=== PATIENT | male | born 1950 | race Caucasian/White ===

== ENCOUNTER 2022-02-26 11:40 | Emergency (ER) | payer MEDICARE ==
[2022-02-26 12:28] LABS: BASOPHILS # (AUTO) 0.1 10^3/uL (0.0-0.1); BASOPHILS % (AUTO) 1.1 %; EOSINOPHILS # (AUTO) 0.8 10^3/uL (0.0-0.7); EOSINOPHILS % (AUTO) 6.6 %; HCT - HEMATOCRIT 45.3 % (42.0-52.0); HGB - HEMOGLOBIN 14.9 g/dL (14.0-18.0); LYMPHOCYTES # (AUTO) 2.2 10^3/uL (1.5-3.5); LYMPHOCYTES % (AUTO) 19.8 %; MEAN CORPUSCULAR HEMOGLOBIN 30.1 pg (27.0-31.0); MEAN CORPUSCULAR HGB CONC 32.9 g/dL (32.0-36.0); MEAN CORPUSCULAR VOLUME 91.5 fL (80.0-94.0); MEAN PLATELET VOLUME 9.5 fL (7.4-11.4); MONOCYTES # (AUTO) 0.6 10^3/uL (0.0-1.0); MONOCYTES % (AUTO) 5.6 %; NEUTROPHILS # (AUTO) 7.6 10^3/uL (1.5-6.6); NEUTROPHILS % (AUTO) 66.6 %; PLT - PLATELET COUNT 276 10^3/uL (130-450); RED BLOOD COUNT 4.95 10^6/uL (4.70-6.10); RED CELL DISTRIBUTION WIDTH 13.1 % (12.0-15.0); WHITE BLOOD COUNT 11.3 x10^3/uL (4.8-10.8)
[2022-02-26 12:44] LABS: ALBUMIN 4.7 g/dL (3.2-5.5); ALBUMIN/GLOBULIN RATIO 1.9 (1.0-2.2); BILIRUBIN,TOTAL 0.7 mg/dL (0.2-1.0); CALCIUM 9.8 mg/dL (8.5-10.3); CREATININE 2.1 mg/dL (0.6-1.2); POTASSIUM 3.2 mmol/L (3.5-5.0); TOTAL PROTEIN 7.2 g/dL (6.7-8.2)
--- NOTE | 2022-02-26 14:52 | CT Report ---
PROCEDURE: CT abdomen pelvis without contrast INDICATIONS: R sided abd pain; Cr 2.1 TECHNIQUE: Noncontrast 5 mm thick sections acquired from the diaphragms to the symphysis. 5 mm coronal and sagi ttal reformats were then performed. For radiation dose reduction, the following was used: automated exposure control, adjustment of mA and/or kV according to patient size. COMPARISON: None. FINDINGS: Image quality: Excellent. Evaluation is limited without contrast ABDOMEN: Lung bases: Lung bases are clear. Heart size is normal. Solid organs: Liver and spleen are normal in size. Gallbladder unremarkable Pancreas is normal in contours. No adrenal nodules. Kidneys are normal in size, without hydronephrosis or nephrolithiasis . Low-density 1.7 cm focus in the left kidney, probable cyst smaller low-density nodule in the right kidney also probably reflects cyst and. Minimal right sided bladder diverticulum noted. Peritoneum and bowel: Unenhanced bowel loops demonstrate normal wall thickness and caliber. No free fluid or air. Normal appendix identified. Nodes and vessels: No retroperitoneal or mesenteric adenopathy by size criteria. Aorta and inferior vena cava are normal in caliber. Miscellaneous: No ventral hernias. PELVIS: Genitourinary: Bladder wall thickness is normal. Miscellaneous: No inguinal hernias or adenopathy. Bones: No suspicious bony lesions. No vertebral body compression fractures. 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 Normal appendix without evidence of appendicitis. 2. Right-sided bladder diverticulum and probable renal cysts Reviewed by: Mendel Merida MD on 02/26/2022 1:50 PM [facility]DT Approved by: Mendel Merida MD on 02/26/2022 1:50 PM AKDT Station ID: [id number]
[2022-02-26 14:58] LABS: BILIRUBIN,URINE NEGATIVE (NEGATIVE); CLARITY,URINE CLEAR (CLEAR); GLUCOSE, URINE (UA) NEGATIVE (NEGATIVE); KETONES,URINE (UA) NEGATIVE (NEGATIVE); LEUKOCYTE ESTERASE, URINE NEGATIVE (NEGATIVE); NITRITE,URINE NEGATIVE (NEGATIVE); OCCULT BLOOD,URINE NEGATIVE (NEGATIVE); PH,URINE 7.5 PH (5.0-7.5); PROTEIN,URINE NEGATIVE (NEGATIVE); UROBILINOGEN,URINE 0.2 (NORMAL) E.U./dL (NORMAL)
[2022-02-26] MEDS ORDERED: POTASSIUM CHLORIDE 20 MEQ TABLET PO STA (15:32)
--- NOTE | 2022-02-26 15:39 | ED Physician Documentation ---
PD HPI ABD PAIN - Stated complaint Stated Complaint: ABD PX - Chief complaint Chief Complaint: Abd Pain - History obtained from History obtained from: Patient - Additional information Additional information: Patient is a 71-year-old male with a history of chronic kidney disease presenting for evaluation of right-sided abdominal pain that is been present for 1 week. Patient had been traveling in [place] and [place] when the pain started. He was seen by certified medical asst there with an unclear diagnosis. He was started on an antibiotic but is unsure of what that antibiotic was. He did have nausea at the onset of his symptoms but that has since resolved.He describes the pain as a dull ache. Nothing makes it better or worse. He denies radiation to the pain. He denies difficulty with urination. He has had a normal appetite. No known fevers. No chest pain or difficulty breathing. Denies history of previous abdominal surgeries. Review of Systems Constitutional: denies: Fever Nose: denies: Congestion Cardiac: denies: Chest pain / pressure Respiratory: denies: Dyspnea GI: reports: Abdominal Pain. denies: Nausea, Vomiting, Diarrhea : denies: Dysuria Skin: denies: Rash Musculoskeletal: denies: Back pain Neurologic: denies: Headache PD PAST MEDICAL HISTORY - Allergies Allergies/Adverse Reactions: Allergies Allergy/AdvReac Type Severity Reaction Status Date / Time Sulfa (Sulfonamide Allergy Unknown Verified 02/26/22 12:01 Antibiotics) PD ED PE NORMAL - General General: Alert and oriented X 3, No acute distress, Well developed/nourished - HEENT HEENT: Atraumatic, Moist mucous membranes - Neck Neck: Supple, no meningeal sign - Cardiac Cardiac: RRR, No murmur, Strong equal pulses - Respiratory Respiratory: No respiratory distress, Clear bilaterally - Abdomen Abdomen: Normal bowel sounds, Soft, Non distended, Other (No mass, no hernia, no rebound or guarding, mild mid rightAbdominal tenderness to palpation, no right upper quadrant tenderness on deep palpation or tenderness over McBurney's) - Back Back: No CVA TTP - Derm Derm: Warm and dry - Extremities Extremities: No edema - Neuro Neuro: Normal speech Results - Vitals Vitals: Vital Signs - 24 hr 02/26/22 02/26/22 11:55 16:04 Temperature 36.7 C Heart Rate 80 87 Respiratory 71 H 20 Rate Blood Pressure 163/90 H 157/88 H O2 Saturation 98 98 Oxygen O2 Source Room air - Labs Labs: Laboratory Tests 02/26/22 02/26/22 02/26/22 12:18 12:18 12:29 WBC 11.3 H RBC 4.95 Hgb 14.9 Hct 45.3 MCV 91.5 MCH 30.1 MCHC 32.9 RDW 13.1 Plt Count 276 MPV 9.5 Neut # (Auto) 7.6 H Lymph # (Auto) 2.2 [place] # (Auto) 0.6 Eos # (Auto) 0.8 H Baso # (Auto) 0.1 Absolute Nucleated RBC 0.00 Nucleated RBC % 0.0 Sodium 144 Potassium 3.2 L Chloride 104 Carbon Dioxide 30 Anion Gap 10.0 BUN 16 Creatinine 2.1 H Estimated GFR (MDRD) 31 L Glucose 96 Calcium 9.8 Total Bilirubin 0.7 AST 23 ALT 15 Alkaline Phosphatase 56 Total Protein 7.2 Albumin 4.7 Globulin 2.5 Albumin/Globulin Ratio 1.9 Lipase 88 H Urine Color YELLOW Urine Clarity CLEAR Urine pH 7.5 Ur Specific [place] <=1.005 Urine Protein NEGATIVE Urine Glucose (UA) NEGATIVE Urine Ketones NEGATIVE Urine Occult Blood NEGATIVE Urine Nitrite NEGATIVE Urine Bilirubin NEGATIVE Urine Urobilinogen 0.2 (NORMAL) Ur Leukocyte Esterase NEGATIVE Ur Microscopic Review NOT INDICATED Urine Culture Comments NOT INDICATED PD MEDICAL DECISION MAKING - ED course Complexity details: reviewed results, re-evaluated patient ED course: Patient with right-sided abdominal pain for 1 week. Labs reviewed. Patient has not been here previously but reports he has a history of chronic kidney disease with known GFR in the 30-40 range which appears consistent with today's labs. I offered IV hydration as well as IV pain medication which patient declined. CT scan without acute findings. Overall patient's abdominal exam is benign and he does not have a surgical abdomen or signs of peritonitis. Discussed need for close follow-up with his primary care doctor as well as advised on concerning symptoms to return for. Departure - Departure Disposition: 01 Home, Self Care Clinical Impression: Right sided abdominal pain Condition: Stable Instructions: ED Abdominal Pain Unkn Cause Male Comments: You were evaluated for abdominal pain. Your labs overall were reassuring. You do have chronic kidney disease and your labs reflected that. Creatinine 2.1/ GFR 31. Your potassium was slightly low and you were given a potassium pill. A CT scan was also obtained which showed a normal appendix and no other significant acute findings such as a bowel obstruction or other infection. You do have cysts in your kidneys which I recommend following up with your primary Care provider. If you have any worsening symptoms please return to the emergency department. Discharge Date/Time: 02/26/22 16:04
[2022-02-26 16:05] VITALS: BP 157/88
== END 2022-02-26 16:04 | disposition home or self-care (01) ==
LOC: ED 11:40
DX: R10.9 Unspecified abdominal pain (principal); N18.9 Chronic kidney disease, unspecified; E87.6 Hypokalemia; N28.1 Cyst of kidney, acquired
CPT/HCPCS: 36415; 74176; 80053; 81003; 83690; 85025; 99282; 99284; A9270; 81001; 87086